=== PATIENT | male | born 1930 | race Caucasian/White ===

== ENCOUNTER 2016-09-20 01:15 | Inpatient (IN) | payer MEDICARE, BC ==
[~2016-09-20] VITALS: Ht 182.9 cm; Wt 85.3 kg
--- NOTE | ~2016-09-20 | CON ---
PATIENT'S NAME: JASMINA JOSEPH [facility] AGE: 85 Y [address] ROOM: [address] [place], [place] [address] [place] [facility] [place]: 09/20/2016 Consultation DISCHARGE DATE: FAMILY PHYSICIAN: Ren Little MD ATTENDING PHYSICIAN: CHARLA FATIMA DATE OF CONSULTATION: 09/20/2016 CHIEF COMPLAINT: Abdominal pain. HISTORY OF PRESENT ILLNESS: As you well know, Jasmina is a very pleasant, 85-year-old demented gentleman who lives at home and is taken care of mostly by his . He was in his usual state of health yesterday morning when they went to visit their doctor in regard to some question of some hot flashes he has been having off and on for some time. As they were heading home,he started having significant abdominal discomfort in the left lower quadrant and the suprapubic area. When they got home, she did note that he had 3 bowel movements that were of normal consistency, normal caliber, and normal color. He has a problem with chronic constipation. He usually goes about once every 4 days, and she keeps a close eye on his bowel habits. She gives him daily stool softeners and occasional magnesium citrate as necessary. She did not have to give him anything unusual recently. Despite the bowel movements, the patient's abdominal pain persisted, and they came to the emergency room last night because of these complaints. At an outside facility, a CT scan was obtained. There was some question of diverticulitis, and he was transferred here for further management. Here, he continues to complain of left lower quadrant and suprapubic abdominal pain. Denies vomiting. Denies melena, hematochezia, hematemesis, or coffee-grounds emesis. Denies any urinary symptoms, although he has a history of previous urinary tract infection. He does have a history of a lumbar compression fracture that has been treated nonoperatively and does cause him some back pain and some issues with mobility, although he can walk around with a walker. He has a distant history of chronic lymphocytic leukemia for which he has not ever received treatment for and was recently seen by his physicians, and they were pleased with his status, and he is scheduled to see them once again in a year. He has had a history of multiple bouts of diverticulitis in the past, one of which even required a hospitalization. There was some mention in the chart about possible ulcerative colitis, but the is unaware of any history of ulcerative colitis that he may have. He does have some chronic diffuse bladder wall thickening and a history of UTIs, but he has also had a cystoscopy done that ruled out any bladder primary issues. He recently had an extensive cardiac workup, although they deny any associated symptoms that sprouted that workup, and supposedly, according to the , everything was negative. Again, most PATIENT'S NAME: JASMINA JOSE[facility] AGE: 85 Y [address] ROOM: [address] [place], [place] [address] [place] [facility] [place]: 09/20/2016 Consultation DISCHARGE DATE: FAMILY PHYSICIAN: Ren Little MD ATTENDING PHYSICIAN: CHARLA FATIMA of their treatment up in [place]. The patient was started on IV Zosyn and Flagyl, was transferred here, and is stable. Because of his abdominal pain, I was called to help and assist with further management. Most of the history is obtained from the as his dementia severely limits his ability to give an accurate history. REVIEW OF SYSTEMS: A full 10-point review of systems was performed with the patient and with the and was limited because of his history-giving ability, but was negative except for as described above. PAST MEDICAL HISTORY: Hypertension, with some chronic renal insufficiency; history of BPH with chronic bladder wall thickening and UTIs, cystoscopy which was negative; history of hypothyroidism; history of GERD; history of hyperlipidemia; history of chronic lymphocytic leukemia, never required treatment; and history of diverticulitis. ALLERGIES: HE HAS ALLERGY LISTED TO NORVASC, CIPROFLOXACIN, CEPHALEXIN, AND PENICILLIN. MEDICATIONS: He takes: 1. [place]. 2. Ibuprofen. 3. Amlodipine. 4. Potassium chloride. 5. Tramadol. 6. Naproxen. 7. Aspirin. 8. Clonidine. 9. Coenzyme Q10. 10. Flomax. 11. Levothyroxine. 12. Losartan. 13. Methocarbamol. 14. Metoprolol. 15. Simvastatin. 16. Lactobacillus. 17. Simethicone. 18. Digestive enzymes. For a full list, please see our hospital list. SOCIAL HISTORY: Denies any recent alcohol or tobacco use or abuse. Distant history of some PATIENT'S NAME: JASMINA JOSEPH [facility] AGE: 85 Y [address] ROOM: [address] [place], [place] [address] [place] [facility] [place]: 09/20/2016 Consultation DISCHARGE DATE: FAMILY PHYSICIAN: Ren Little MD ATTENDING PHYSICIAN: CHARLA FATIMA mild tobacco and alcohol use. PAST SURGICAL HISTORY: History of cataract surgery, history of cholecystectomy in 2007, distant history of hernia repair in his 40s, and history of knee surgery. He also has a history of left-sided carotid surgery x2, and that is in followup, and I guess he has about 70% stenosis at this time on that side. Never had a history of stroke. Denied any cardiac disease or history of stents, catheterizations, or heart surgery. FAMILY HISTORY: His father also had leukemia, and at one point or other, required a colostomy, but no known history of colon cancer in the family, presumably is related to diverticulitis. No other cancer family history. No history of inflammatory bowel disease in the family. PHYSICAL EXAMINATION: VITAL SIGNS: He is afebrile, T-current is 98. His vital signs are stable. Pulse is 95, respiratory rate is 18, blood pressure 135/61, saturating 95% on room air. His BMI is 25.5, otherwise denies any weight loss. GENERAL: He is in no apparent distress. He is currently alert and oriented, but demented and a very poor historian. He is quite pleasant. HEENT: His sclerae are anicteric. NECK: Supple. His trachea is midline. He has no palpable supraclavicular lymphadenopathy. HEART: His rate and rhythm are regular. LUNGS: Breathing nonlabored. ABDOMEN: Soft. It is not overtly distended. It is tender to palpation, mostly in the left lower quadrant and suprapubic areas, but he is soft throughout. No palpable hernias. Previous incisions are all well healed. EXTREMITIES: Bilateral lower extremities are warm. Brisk capillary refill without evidence of significant edema. No obvious calf tenderness or swelling. No obvious skin lesions or rashes. LABORATORY EVALUATION: Blood cultures are negative to date. Procalcitonin is 1.94. Sodium is 139, potassium 3.5, chloride 105, CO2 is 23, BUN is 26, creatinine 1.7, and calcium 7.6. Liver function tests are normal. Amylase and lipase are normal. Lactate is 1.8. White blood cells 7.7, hemoglobin 11.0, hematocrit is 31.0, and platelets are 135. Urinalysis shows some significant leukocyte esterase in the urine at 500, nitrites are negative, protein is 30 mg/dL, glucose negative, ketones 5, bilirubin is negative, 25 to 50 wbc's in the urine. 2 to 5 rbc's in the urine. I do not see any results of the urine culture, presumably those are pending. PATIENT'S NAME: JASMINA JOSEPH [facility] AGE: 85 Y [address] ROOM: [address] [place] [address] [place] [facility] [place]: 09/20/2016 Consultation DISCHARGE DATE: FAMILY PHYSICIAN: Ren Little MD ATTENDING PHYSICIAN: CHARLA FATIMA RADIOLOGY REVIEW: CT scan of the abdomen and pelvis reveals diverticulitis with pericolonic inflammation and diverticula. At the distal end of the inflammatory area is a kind of decompressive area of the colon into a more decompressed distal colon, but no mass seen at that location. He does have a small pancreatic cyst in the mid to distal body without other abnormalities. No involvement of the main duct is seen on the CT scan with contrast. No mural wall thickening or thick-walled structures. 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 No evidence of small bowel obstruction. Mild dilatation of the colon proximally to the diverticulitis. No pneumatosis. Significant diverticulitis. No evidence of perforation or abscess. No free air or free fluid. A KUB from today shows some retained contrast in the bladder from the recent CAT scan. Air and stool throughout the colon. No evidence of bowel obstruction. Previous cholecystectomy clips in place. Chest x-ray shows no vascular congestion or acute parenchymal infiltrate identified. ASSESSMENT AND PLAN: An 85-year-old pleasantly demented gentleman with multiple episodes of diverticulitis in the past, again presents with what appears to be diverticulitis and may be complicated by a slight stricture distally, but this has not yet been clarified, and we are pleased to hear that he had a normal bowel movement yesterday. At this point, treat him with simply expectant treatment for diverticulitis with antibiotics. As long as he continues to improve with this, he will not need any additional intervention during this acute phase, but will most definitely need a colonoscopy in the future in order to make sure that there is no overwhelming stricture distally, or even worse, a malignancy causing this appearance. I discussed this with him and his . If he fails to improve, he may require emergent surgical intervention which would require at least a colostomy if not a partial colectomy, and he understands that colostomy may be permanent given his baseline issues. Also, if he fails to improve, and if stable, we may choose to do a sigmoidoscopy or barium enema while he is here to get a better understanding of the level of obstruction if he fails to improve with just antibiotics alone. We discussed all these options with her and him, and they are agreeable to proceeding in this fashion. Given his comorbidities, they understand that this episode of diverticulitis is quite significant and morbid given his advanced age. They had all their questions answered to their satisfaction and wished to proceed as above. PATIENT'S NAME: JASMINA JO[facility] AGE: 85 Y [address] ROOM: [place] [address] [place] [facility] [place]: 09/20/2016 Consultation DISCHARGE DATE: FAMILY PHYSICIAN: Ren Little MD ATTENDING PHYSICIAN: CHARLA FATIMA MD SHAVONNE GASCA (JAKE)/nestorl /[id number] CC: Mary Olsen MD d: t: 09/20/16 1540, CONSULTATION REPORT
--- NOTE | ~2016-09-20 | HP ---
PATIENT'S NAME: JASMINA JOSEPH [facility] AGE: 85 Y [address] ROOM: [address] [place] [address] [place]: [facility] [place] ADMIT DATE: 09/20/2016 History & Physical DISCHARGE DATE: FAMILY PHYSICIAN: Ren Little MD ATTENDING PHYSICIAN: CHARLA FATIMA DATE OF SERVICE: CHIEF COMPLAINT: Left lower quadrant pain. HISTORY OF PRESENT ILLNESS: This is an 85-year-old male who is a very poor historian with a baseline dementia who is alert, but disoriented x3. I tried to call the , but nobody answered the phone, and could not even leave a voicemail. The phone number of the is Reina, phone #. So, the most I could get from the story is from the chart and also from the patient to the best of my ability. The story is that the patient has been complaining of left lower quadrant abdominal pain sometime started yesterday in the afternoon not sure what time exactly. He was on his way back after seeing his primary care physician and when the patient came back home, the patient had 3 bowel movements, where the report was described as firm stool, but the physician contract assistant who transferred the patient here on the phone, he told me that the patient told him the stool was actually soft. When I asked the patient, the patient said he could not remember. According to the report, there was no diarrhea, no melena, and no hematochezia. The left lower quadrant abdominal pain was 7/10 of intensity at that time without radiation and without nausea or vomiting. His last bowel movement was yesterday, not sure what time, but there was 3 episodes at admission before. Because of the worsening left lower quadrant abdominal pain, the patient went to the emergency room at the outside facility in [place]. In [place], they did a CT of the abdomen and pelvis with contrast and it showed a long segment focal fecal impaction involving a redundant portion of the sigmoid colon. The colon could be relatively obstructed at the distal end of this abnormal region. Inflammatory stranding surrounding the colon in this region which could be seen in the setting of colitis or ischemia. No late manifestation of bowel ischemia. Chronic diffuse bladder wall thickening. Compression fracture at L1 with mild interval progression. Blood work was also performed, which was unremarkable. In [place], the patient received 1 dose of IV Zosyn and IV Flagyl and because they do not have any beds available the patient was sent over here for admission and further evaluation. PATIENT'S NAME: JASMINA JOSEPH [facility] AGE: 85 Y [address] ROOM: [place] [address] LOCATION: [facility] [place] ADMIT DATE: 09/20/2016 History & Physical DISCHARGE DATE: FAMILY PHYSICIAN: Ren Little MD ATTENDING PHYSICIAN: CHARLA FATIMA The patient denies any fever, chills, chest pain, shortness of breath, cough, or any other symptoms. However, like admission before, the patient is a very poor historian with dementia at baseline and disoriented x3. I cannot get in touch with the patient's . REVIEW OF SYSTEMS: As mentioned in the history of present illness. All other systems were reviewed and were negative except those mentioned in the history of present illness. PAST MEDICAL HISTORY: 1. Hypertension. 2. Dementia. 3. Benign prostatic hypertrophy. 4. Hypothyroidism. 5. Gastroesophageal reflux disease. 6. Hyperlipidemia. 7. History of chronic lymphocytic leukemia in the past already in remission. 8. History of ulcerative colitis per medical records. ALLERGIES: PER MEDICAL RECORDS THAT CAME WITH THE PATIENT, IT SHOW CEPHALEXIN, CIPROFLOXACIN, NORVASC, AND PENICILLIN. HOWEVER, NOT SURE WHAT REACTION DOES THE PATIENT HAVE. HOME MEDICATIONS: It will be reconciled in the morning with the patient's pharmacy because the patient has dementia and he does not remember. I reviewed the medical records that came with the patient he is not on any anticoagulation medication. He does take aspirin 81 mg p.o. every Saturday, Saturday, and Saturday per medical records. SOCIAL HISTORY: The patient denies any alcohol, illegal drugs, or cigarette smoking. FAMILY HISTORY: The patient does not remember anything about his parents. PAST SURGICAL HISTORY: Per medical records, it show: 1. Status post cataract surgery. 2. Status post cholecystectomy. 3. Status post hernia repair. 4. Status post knee and carotid artery surgery per medical records. PATIENT'S NAME: JASMINA JOSEPH [facility] AGE: 85 Y [address] ROOM: [place] [address] LOCATION: [facility] [place] ADMIT DATE: 09/20/2016 History & Physical DISCHARGE DATE: FAMILY PHYSICIAN: Ren Little MD ATTENDING PHYSICIAN: CHARLA FATIMA PHYSICAL EXAMINATION: VITAL SIGNS: Temperature 99.2, heart rate 102, respiration 14, blood pressure 162/72, and oxygen saturation 94% on 2 L nasal cannula. GENERAL APPEARANCE: Alert and disoriented x3. The patient is not in acute distress. HEENT: Pupils equally round and reactive to light. Extraocular muscles intact. Anicteric sclerae. Nasal turbinates are normal bilaterally. Dry oral mucosa. NECK: No JVD. CARDIOVASCULAR: No murmur, no rubs, no gallops. Regular rate and rhythm. Normal S1, S2. RESPIRATORY: Clear to auscultation. No obvious rales, rhonchi, crackles, or wheezing. ABDOMEN: Soft, nondistended, obese, bowel sounds decreased, I could not appreciate a mass and tender to palpation in the left lower quadrant. Intensity about 4/10. No abdominal rigidity. EXTREMITIES: No edema in upper or lower extremities. NEUROLOGIC: Cannot assess the full neurological examination given that the patient has dementia and has a hard time following commands. However, the patient can move his extremities without problem and sensation is also intact. No slurred speech. No facial droop. Pronator drift negative bilaterally. Babinski also negative bilaterally. SKIN: No ulcer, no rash, and no cyanosis. MUSCULOSKELETAL: No joint pain and no muscle pain. Range of motion intact. LABORATORY DATA: Lactic acid 1.6. White blood cells 7.7, hemoglobin 11, hematocrit 31, MCV 100.3, and platelet 135. Glucose 136, BUN 27, creatinine 1.6. Sodium 139, potassium 3.7, chloride 108, CO2 22, calcium 7.9, total protein 6.4, AST 45, ALT 45, albumin 3.2, alkaline phosphatase 64, total bilirubin 0.8, direct bilirubin 0.2, magnesium 2.5, GFR 41, anion gap 12.7, INR 1.02, PTT 25. Urinalysis showed leukocytes 500, white blood cell 20 to 50, negative bacteria, and negative nitrite. Procalcitonin 1.56. IMAGING STUDIES: 1. CT of the abdomen and pelvis with IV contrast performed from the outside facility on September 19, 2016 was read as long-segment focal fecal impaction involving a redundant portion of the sigmoid colon. The colon could be relatively obstructed at the distal end of this abnormal region. Inflammatory stranding surrounding the colon in this region which could be seen in the setting of colitis or ischemia. No late manifestations of bowel ischemia. Chronic diffuse bladder wall thickening. Compression fracture at L1 with mild interval progression. 2. EKG on admission here in our facility shows sinus rhythm, heart rate at 98 beats per minute, [place] 150 milliseconds, QRS 148 milliseconds, and QTc PATIENT'S NAME: JASMINA JOSEPH [facility] AGE: 85 Y [address] ROOM: [address] [place] [id number] LOCATION: [facility] [place] ADMIT DATE: 09/20/2016 History & Physical DISCHARGE DATE: FAMILY PHYSICIAN: Ren Little MD ATTENDING PHYSICIAN: CHARLA FATIMA 442 milliseconds. I do not appreciate any acute ischemic findings. ASSESSMENT AND PLAN: 1. Regarding his left lower quadrant abdominal pain: CT scan of the abdomen and pelvis with intravenous contrast from the outside facility show possible fecal impaction and possible obstruction in the distal area of the sigmoid colon. It also showed possible inflammatory changes in that area possibly with the colitis. The patient already had 3 bowel movements as of yesterday and is passing flatus also as of yesterday. I am not sure if he really has obstruction as mentioned in the CT scan report. Given that the patient does have a temperature at 99 and also has a high procalcitonin, I will treat him for colitis in the setting of history of ulcerative colitis. I will cover him with intravenous antibiotics with intravenous meropenem, which is a good coverage for diverticulitis and also good for colitis. N.p.o. Intravenous fluids for hydration. Pain control with intravenous morphine p.r.n. Intravenous Zofran for nausea, vomiting p.r.n. I will get a KUB in the morning and also lactic acid and also repeat blood work including procalcitonin in the morning. I will get blood culture 2 sets and also get urine culture as well. Further plan depends on clinical course. GI and also General Surgery could be consulted if necessary depending on his clinical course in the morning and also based on the KUB. Further plan will depend on clinical course. 2. Regarding his hypertension: Home medication needs to be addressed first and I will hold the medication for the blood pressure for now in the setting of n.p.o. and intravenous fluids. 3. Regarding his dementia: Home medication has to be addressed once the list is ready. 4. Regarding his urinary tract infection: Meropenem is a good coverage. Follow up with the urine culture to modify the antibiotics if necessary based on the sensitivity. 5. History of benign prostatic hypertrophy: Home medication has to be addressed once the list is ready. The patient denies any urinary difficulty at the moment. However, the patient does have a dementia, it is difficult to know if his information is reliable or not. In the setting of a possible urinary tract infection, I am going to avoid a Zaragoza catheter insertion. 6. Regarding his history of hypothyroidism: We will check a TSH and wait for the medication to be addressed in the morning once the list is ready to see if he is on levothyroxine and if the dose should be adjusted based on the TSH. 7. Regarding his history of gastroesophageal reflux disease: I will give him intravenous Protonix 40 mg daily while he is n.p.o. 8. Regarding his hyperlipidemia: Home medication list had to be reconciled to see if he is on any statin or any other cholesterol medication and PATIENT'S NAME: JASMINA JOSEPH [facility] AGE: 85 Y [address] ROOM: [place] [address] LOCATION: [facility] ADMIT DATE: 09/20/2016 History & Physical DISCHARGE DATE: FAMILY PHYSICIAN: Ren Little MD ATTENDING PHYSICIAN: CHARLA FATIMA then the list can be addressed. 9. I will get a chest x-ray on him as well given that the patient has dementia, it is hard to really know if he has any shortness of breath or not. Further plan will depend on clinical course. 10. Regarding his deep vein thrombosis prophylaxis: I will give him compression devices for now in case the patient may require invasive intervention based on his clinical course. Total time spent in care 50 minutes where half of the time was spent in trying to get a history and physical examination and going over the plan of care with the patient and nurse and also tried to call the patient's , but nobody answered the phone and could not even voicemail at that time. The other half of the total time spent was in chart review and physical examination and also on the interview. Further plan will depend on clinical course. MD TAYLOR FOWLER/shannan /[id number] D: [id number] T: [id number] HISTORY & PHYSICAL
--- NOTE | ~2016-09-20 | DS ---
PATIENT'S NAME: [facility] AGE: 85 Y [address] ROOM: [place] [address] LOCATION: [place] ADMIT DATE: 09/20/2016 Discharge Summary DISCHARGE DATE: 09/22/2016 FAMILY PHYSICIAN: Ren Little MD ATTENDING PHYSICIAN: Jarrod Cherry PRINCIPAL DIAGNOSES: 1. Acute diverticulitis. 2. Constipation. 3. Fecal impaction. 4. Dementia. 5. Hypertension. 6. Hypothyroidism. HOSPITAL COURSE: An 85-year-old very pleasant gentleman was admitted to [facility] with abdominal pain. Initial evaluation with a CAT scan, led to the diagnosis of acute diverticulitis. There was also fecal impaction. Initially, there was some concern for surgical abdomen. Surgical consultation was obtained and no surgical intervention was planned at that point. The patient was made n.p.o., and patient was volume resuscitated and was started on antibiotics for diverticulitis. Over the course of the hospitalization, he improved and started passing gas as well as having regular bowel movements. His abdominal pain improved a lot. We will discharge him from the hospital and have him see Dr. Little who is the primary care physician at the [facility]. General surgery recommended a flex sigmoidoscopy in about 4 weeks to see if there is a stricture or any tumor leading to this obstruction just to be sure. I will sign the discharge of Dr. Little who can schedule the patient up with the public speaking instructor in the area, in the [facility]. IMAGING DATA: CAT scan of the abdomen and pelvis with intravenous contrast from the outside facility showed possible fecal impaction and possible obstruction in the distal area of the sigmoid colon. The colon could be relatively obstructed at distal end of abdominal region, inflammatory stranding surrounding the colon in this region which could be seen in setting of colitis or ischemia. No late manifestation as well as ischemia working out. DISCHARGE MEDICATIONS: We did not change any home medications. 1. Metoprolol 25 mg p.o. every night at bedtime. 2. Levothyroxine 100 mcg p.o. every night at bedtime. 3. [place] 1 tablet p.o. every 6 hours p.r.n. I advised the patient to stop the taking Advil. 4. Potassium chloride 10 mEq p.o. every day. Lactobacillus one capsule p.o. every day. 5. Digest 125 mg p.o. 3 times daily digestive enzymes. PATIENT'S NAME: [facility] AGE: 85 Y [address] ROOM: [address] [address] LOCATION: [place] ADMIT DATE: 09/20/2016 Discharge Summary DISCHARGE DATE: 09/22/2016 FAMILY PHYSICIAN: Ren Little MD ATTENDING PHYSICIAN: Jarrod Cherry 6. Tamsulosin 0.4 mg p.o. every day. 7. Losartan 100 mg p.o. every day. 8. Robaxin 750 mg p.o. 4 times daily. 9. Namenda 10 mg p.o. twice daily. 10. Simvastatin 40 mg p.o. every night at bedtime. 11. Tramadol 50 mg p.o. every 4 hours p.r.n. 12. Aspirin 81 mg for 3 days a week. 13. Clonidine 0.5 mg p.o. every night at bedtime for emergent high blood pressures. 14. Coenzyme Q. NEW MEDICATION: Includes ciprofloxacin as well as metronidazole for 4 days. DISCHARGE CONDITION: Hemodynamically stable. ACTIVITY: As tolerated. FOLLOWUP: Follow up with Dr. Little in 3 days. Progress note from the day of discharge, subjective feeling fine. No abdominal pain. Had a bowel movement last night. No fever, no chills. OBJECTIVE: 118/80, 18, 97, 98.1. GENERAL: No acute distress. Alert and oriented x3. HEENT: Head atraumatic and normocephalic. CARDIOVASCULAR. S1, S2. No murmurs, gallops, or rubs. LUNGS: Clear to auscultation bilaterally. ABDOMEN: Soft, nontender, and nondistended. Bowel sounds present. EXTREMITIES: No clubbing, cyanosis, or edema. LAB WORK: On the day of the discharge, hemoglobin 10 with a WBC count 8.1, platelets 141. Chemical panel showed creatinine of 1.0, BUN 12, potassium. 3.0, chloride 105, bicarb 23, calcium 7.6. MD ANITA AMARO/shannan /[id number] d: 09/22/16 1817 t: 09/23/16 1324, DISCHARGE SUMMARY
[2016-09-20 03:05] LABS: BILIRUBIN URINE NEGATIVE (NEGATIVE); BLOOD URINE 10 /UL (NEGATIVE); COLOR URINE YELLOW (YELLOW); GLUCOSE URINE NEGATIVE (NEGATIVE); KETONE URINE 5 mg/dL (NEGATIVE); LEUKOCYTES URINE 500 /UL (NEGATIVE); NITRITE URINE NEGATIVE (NEGATIVE); PH URINE 6.5 (4.0-8.0); PROTEIN URINE 30 mg/dL (NEGATIVE); TURBIDITY URINE CLEAR (CLEAR); UROBILINOGEN URINE 1 mg/dL (NORMAL)
[2016-09-20 03:14] LABS: BACTERIA URINE NEGATIVE (NEGATIVE); EPITHELIAL URINE 0-2 #/HPF (NEGATIVE); WBC URINE 20-50 #/HPF (NEGATIVE)
[2016-09-20 03:32] LABS: BASOPHIL % 0.1 %; IMMATURE GRANULOCYTE % 0.1 %; LYMPHOCYTE # 1.2 K/uL (0.8-4.0); LYMPHOCYTE % 15.8 %; MCH 35.6 pg (27.0-34.0); MCHC 35.5 gm/dL (32.0-36.5); MCV 100.3 fl (83.0-98.0); MONOCYTE # 0.7 K/uL (0.0-1.0); MONOCYTE % 9.2 %; MPV 8.7 fl (9.4-12.4); NEUTROPHIL # (ANC) 5.8 K/uL (1.4-9.0); NEUTROPHIL % 74.8 %; NRBC % 0 /100WBC (0-0.00); PLATELET COUNT 135 K/uL (150-450); RBC 3.09 M/uL (3.50-5.50); RDW-CV 13.5 % (11.9-14.6); WBC 7.7 K/uL (4.0-11.0)
[2016-09-20 03:45] LABS: INR - (THERAPEUTIC) 1.02 (0.92-1.07); PROTIME 10.7 SECONDS (9.8-11.4); PTT 25 SECONDS (25-32)
[2016-09-20 03:52] LABS: ALBUMIN 3.2 gm/dL (3.5-5.0); ANION GAP 12.7 (10.0-19.0); CALCIUM 7.9 mg/dL (8.5-10.5); CREATININE 1.6 mg/dL (0.6-1.3); MAGNESIUM 2.5 mg/dL (1.8-2.6); POTASSIUM 3.7 mMol/L (3.7-5.1); TOTAL BILIRUBIN 0.8 mg/dL (0.0-1.5); TOTAL PROTEIN 6.4 g/dL (6.0-8.4)
[2016-09-20 08:37] LABS: ANION GAP 14.5 (10.0-19.0); CALCIUM 7.6 mg/dL (8.5-10.5); CREATININE 1.7 mg/dL (0.6-1.3); POTASSIUM 3.5 mMol/L (3.7-5.1); TOTAL BILIRUBIN 0.7 mg/dL (0.0-1.5); TOTAL PROTEIN 6.2 g/dL (6.0-8.4)
[2016-09-20] MEDS ORDERED: NORCO 5-325 TA1 EACH PO (08:47)
[2016-09-20] MEDS ORDERED: ADVIL200 MG PO (08:48)
[2016-09-20] MEDS ORDERED: NORVASC5 MG PO (08:48)
[2016-09-20] MEDS ORDERED: ULTRAM50 MG PO (08:49)
[2016-09-20] MEDS ORDERED: K-TAB 10MEQ10 MEQ PO (08:49)
[2016-09-20] MEDS ORDERED: ASPIRIN LO-DOSE81 MG PO (08:51)
[2016-09-20] MEDS ORDERED: ALEVE220 M1 PO (08:51)
[2016-09-20] MEDS ORDERED: COENZYME Q10100 MG PO (08:52)
[2016-09-20] MEDS ORDERED: FLOMAX0.4 MG PO (08:52)
[2016-09-20] MEDS ORDERED: CATAPRES0.1 MG PO (08:52)
[2016-09-20] MEDS ORDERED: COZAAR100 MG PO (08:53)
[2016-09-20] MEDS ORDERED: ROBAXIN750 MG PO (08:53)
[2016-09-20] MEDS ORDERED: LEVOTHROID (S100 MCG PO (08:53)
[2016-09-20] MEDS ORDERED: NAMENDA10 MG PO (08:54)
[2016-09-20] MEDS ORDERED: LOPRESSOR25 MG PO (08:54)
[2016-09-20] MEDS ORDERED: ZOCOR80 MG PO (08:55)
[2016-09-20] MEDS ORDERED: PROBIOTIC1 EAC1 PO (08:55)
[2016-09-20] MEDS ORDERED: GAS-X125 MG PO (08:56)
[2016-09-20] MEDS ORDERED: DIGESTIVE ENZY1 EACH PO (08:56)
[2016-09-21 05:51] LABS: BASOPHIL % 0.3 %; EOSINOPHIL # 0.1 K/uL (0.0-0.5); EOSINOPHIL % 1.1 %; HEMATOCRIT 27.7 % (33.0-50.0); HEMOGLOBIN 9.5 g/dL (11.0-16.0); IMMATURE GRANULOCYTE % 0.5 %; LYMPHOCYTE # 1.5 K/uL (0.8-4.0); LYMPHOCYTE % 22.4 %; MCH 35.4 pg (27.0-34.0); MCHC 34.3 gm/dL (32.0-36.5); MCV 103.4 fl (83.0-98.0); MONOCYTE # 0.7 K/uL (0.0-1.0); MONOCYTE % 10.7 %; MPV 8.8 fl (9.4-12.4); NEUTROPHIL # (ANC) 4.2 K/uL (1.4-9.0); NRBC % 0 /100WBC (0-0.00); PLATELET COUNT 126 K/uL (150-450); RBC 2.68 M/uL (3.50-5.50); RDW-CV 13.7 % (11.9-14.6); WBC 6.5 K/uL (4.0-11.0)
[2016-09-21 06:09] LABS: ANION GAP 10.6 (10.0-19.0); BLOOD UREA NITROGEN 21 mg/dL (6-24); CALCIUM 7.6 mg/dL (8.5-10.5); CHLORIDE 111 mMol/L (96-110); CO2 23 mMol/L (22-32); CREATININE 1.1 mg/dL (0.6-1.3); POTASSIUM 3.6 mMol/L (3.7-5.1); SODIUM 141 mMol/L (135-145)
[2016-09-21 06:17] LABS: ESTIMATED GFR (MDRD EQUATION) > 60
[2016-09-22 05:28] LABS: BASOPHIL % 0.1 %; EOSINOPHIL # 0.1 K/uL (0.0-0.5); EOSINOPHIL % 0.9 %; HEMATOCRIT 30.6 % (33.0-50.0); HEMOGLOBIN 10.8 g/dL (11.0-16.0); IMMATURE GRANULOCYTE % 0.5 %; LYMPHOCYTE # 1.5 K/uL (0.8-4.0); MCH 35.6 pg (27.0-34.0); MCHC 35.3 gm/dL (32.0-36.5); MONOCYTE # 0.8 K/uL (0.0-1.0); MPV 8.8 fl (9.4-12.4); NEUTROPHIL # (ANC) 5.6 K/uL (1.4-9.0); NEUTROPHIL % 69.5 %; NRBC % 0 /100WBC (0-0.00); PLATELET COUNT 141 K/uL (150-450); RBC 3.03 M/uL (3.50-5.50); RDW-CV 13.2 % (11.9-14.6); WBC 8.1 K/uL (4.0-11.0)
[2016-09-22 05:50] LABS: ALBUMIN 3.1 gm/dL (3.5-5.0); BLOOD UREA NITROGEN 12 mg/dL (6-24); CALCIUM 7.6 mg/dL (8.5-10.5); CHLORIDE 105 mMol/L (96-110); CO2 23 mMol/L (22-32); ESTIMATED GFR (MDRD EQUATION) > 60; MAGNESIUM 2.2 mg/dL (1.8-2.6); PHOSPHORUS 1.5 mg/dL (2.5-4.9); SODIUM 137 mMol/L (135-145)
[2016-09-22] MEDS ORDERED: COLACE100 MG PO (13:42)
[2016-09-22] MEDS ORDERED: FLAGYL500 MG PO (13:44)
[2016-09-22] MEDS ORDERED: CIPRO500 MG PO (13:45)
[2016-09-22] MEDS ORDERED: HEALTHYLAX17 GM PO (13:50)
== END 2016-09-22 15:25 | disposition disaster alternative care site (69) | DRG 391 ==
LOC: GMSU 01:15
PROVIDERS: Physician Assistant; ADMIT Internal Medicine
DX: K57.92 Diverticulitis of intestine, part unspecified, without perforation or abscess without bleeding (principal); G93.41 Metabolic encephalopathy; N17.9 Acute kidney failure, unspecified; I12.9 Hypertensive chronic kidney disease with stage 1 through stage 4 chronic kidney disease, or unspecified chronic kidney disease; F03.90 Unspecified dementia, unspecified severity, without behavioral disturbance, psychotic disturbance, mood disturbance, and anxiety; K59.00 Constipation, unspecified; C91.11 Chronic lymphocytic leukemia of B-cell type in remission; E87.1 Hypo-osmolality and hyponatremia; N18.9 Chronic kidney disease, unspecified; E03.9 Hypothyroidism, unspecified; Z88.1 Allergy status to other antibiotic agents; Z88.0 Allergy status to penicillin; Z88.8 Allergy status to other drugs, medicaments and biological substances; Z90.49 Acquired absence of other specified parts of digestive tract; Z79.82 Long term (current) use of aspirin
CPT/HCPCS: J1335; J2185; J2270; J3480; J7030; J7040; J7042; J7050; J7120